=== PATIENT | female | born 1995 | race African-American/Black ===

== ENCOUNTER → 2016-12-09 19:39 | Emergency (ER) | payer OTHER ==
[~2016-12-09 19:39] MED LIST: Acetaminophen TAB* 325 MG PO ONE; Albuterol/Ipratropium NEB.SOL* Albuterol 2.5 MG/Ipratropium 0.5 MG 3 ML INH ONE; Azithromycin TAB* 250 MG PO ONE; predniSONE TAB* 20 MG PO ONE
[2016-12-09 19:46] VITALS: BP 121/72
--- NOTE | 2016-12-09 21:09 | RAD ---
INDICATION: Cough, shortness of breath, sinus congestion, cold symptoms. History of asthma. COMPARISON: No relevant prior exams available on the [facility] for comparison. TECHNIQUE: Dual energy PA and routine lateral views of the chest were obtained. REPORT: Clear lungs and pleural spaces. Negative for pneumothorax. The heart, pulmonary vasculature, and mediastinal contours are unremarkable. Unremarkable osseous structures and soft tissue contours. IMPRESSION: No evidence for pneumonia. Negative exam.
--- NOTE | 2016-12-09 23:55 | ED ---
Nevin Downey Rebecca, scribed for Alona Fajardouel on 12/09/16 at 2041 . HPI Febrile Illness - HPI Summary HPI Summary: Pt is a 21 y/o F who presents to ED with c/o fever with nasal congestion, productive cough, wheezing and myalgias for 2 days. Myalgias are currently moderate, ranked 5/10. Used her inhaler while in the waiting room, which improved wheezing. Sx aggravated by nothing. Denies sore throat. PMHx asthma and seasonal allergies. - History of Current Complaint Chief Complaint: EDFluSymptoms Time Seen by Provider: 12/09/16 20:28 Hx Obtained From: Patient Onset/Duration: Started Days Ago - 2 days, Still Present Current Severity: Moderate Pain Intensity: 5 Pain Scale Used: 0-10 Numeric Aggravating Factors: Nothing Alleviating Factors: Other: - Inhaler - wheezing Associated Signs and Symptoms: Cough, Myalgia, Other: - Wheezing, nasal congestion - Allergy/Home Medications Allergies/Adverse Reactions: Allergies Allergy/AdvReac Type Severity Reaction Status Date / Time No Known Allergies Allergy Verified 12/09/16 19:46 PMH/Surg Hx/FS Hx/Imm Hx Cardiovascular History: Denies: Hx Coronary Artery Disease Respiratory History: Reports: Hx Asthma, Hx Seasonal Allergies Infectious Disease History: No Infectious Disease History: Denies: Traveled Outside the [place] in Last 30 Days - Family History Known Family History: Negative: Cardiac Disease - Social History Alcohol Use: None Substance Use Type: Reports: None Smoking Status (MU): Never Smoked Tobacco Review of Systems Positive: Fever Positive: Other - Nasal congestion. Negative: Sore Throat Positive: Cough, Other - Wheezing Positive: Myalgia All Other Systems Reviewed And Are Negative: Yes Physical Exam - Summary Physical Exam Summary: Appearance: Well appearing, no pain distress Skin: warm, dry, reflects adequate perfusion Head/face: normal Eyes: EOMI, SANDHYA ENT: normal Neck: supple, nontender Respiratory: bilateral wheeze to auscultation, breath sounds present Cardiovascular: RRR, pulses symmetrical Abdomen: nontender, soft Bowel: present Musculoskeletal: normal, strength/ROM intact Neuro: normal, sensory motor intact, A&Ox3 Triage Information Reviewed: Yes Vital Signs On Initial Exam: Initial Vitals Temp Pulse Resp BP Pulse Ox 100.1 F 119 14 121/72 98 12/09/16 19:44 12/09/16 19:44 12/09/16 19:44 12/09/16 19:44 12/09/16 19:44 Vital Signs Reviewed: Yes - Lane Coma Scale Coma Scale Total: 15 Diagnostics - Vital Signs Vital Signs Temp Pulse Resp BP Pulse Ox 12/09/16 19:44 100.1 F 119 14 121/72 98 - Laboratory Lab Statement: Any lab studies that have been ordered have been reviewed, and results considered in the medical decision making process. - Radiology CXR Xray Interpretation: No Acute Changes - No evidence for pneumonia. Negative exam. ED physician reviewed this radiology report and agrees. Radiology Interpretation Completed By: Radiologist Re-Evaluation - Re-Evaluation First Eval Re-Evaluation Time: 23:05 Change: Improved Comment: Discused results and D/C plan. Course/Dx - Course Assessment/Plan: Pt is a 21 y/o F who presents to ED with c/o fever with nasal congestion, productive cough, wheezing and myalgias for 2 days. Myalgias are currently moderate, ranked 5/10. Used her inhaler while in the waiting room, which improved wheezing. Denies sore throat. PMHx asthma and seasonal allergies. CXR reveals no acute findings. In the ED course, pt was given Tylenol , Zithromax, Prednisone and Duoneb which improved sx. Pt will be D/C to home with Dx of asthma exacerbation, bronchitis and possible mycoplasm with Rx for Ventolin inhaler, Medrol Dosepak and Ventolin inhaler. She understands and agrees. Patient medications reviewed this visit. - Diagnoses Provider Diagnoses: Asthma exacerbation, Bronchitis, possible mycoplasma Discharge - Discharge Plan Condition: Stable Disposition: HOME Prescriptions: Albuterol HFA INHALER* [Ventolin HFA Inhaler*] 2 puff INH Q6H PRN #1 mdi PRN Reason: Sob/Wheezing Azithromycin TAB* [Zithromax TAB (Z-ASHLIE) 250 mg #6 tabs] 250 mg PO DAILY #4 tab Methylprednisolone [Medrol Dosepak 4 MG*] 0 mg PO .SEE ASHLIE INSTRUCTION #1 tab Patient Education Materials: Asthma (ED), Acute Bronchitis (ED) Referrals: [facility] [place] [facility] [Outside] - 3 Days No Primary Care Phys,NOPCP [Primary Care Provider] - The documentation as recorded by the Nevin perez Rebecca accurately reflects the service I personally performed and the decisions made by me, Daryl Fajardo.
== END | disposition home or self-care (01) ==
LOC: ED 19:39
DX: J45.901 Unspecified asthma with (acute) exacerbation (principal); R50.9 Fever, unspecified
CPT/HCPCS: 71020; 94640; 99282; A9270-GY; J7512